=== PATIENT | male | born 1945 | race Caucasian/White ===

== ENCOUNTER 2021-01-25 17:07 | Observation (INO) | payer MEDICARE, OTHER ==
--- NOTE | 2021-01-25 17:20 | ED Physician Documentation ---
History of Present Illness - Stated complaint Stated Complaint: SENT BY FOR HIGH POTASSIUM - Chief complaint Chief Complaint: General - History obtained from History obtained from: Patient - Additonal information Additional information: 76-year-old gentleman with type 2 diabetes and hypertension but no known kidney problems had outpatient labs done today to follow-up on a finger infection and was notified to come to the emergency department for hyperkalemia. He does not know what the level was. Review of Systems Ten Systems: 10 systems reviewed and negative Constitutional: reports: Reviewed and negative Cardiac: reports: Reviewed and negative Respiratory: reports: Reviewed and negative PD PAST MEDICAL HISTORY - Present Medications Home Medications: Ambulatory Orders Medication Instructions Recorded Confirmed Insulin Glargine [Lantus Solostar] 10 units SQ HS 01/25/21 01/25/21 Lisinopril [Prinivil] 5 mg PO DAILY 01/25/21 01/25/21 Sulfamethoxazole/Trimethoprim 1 tab PO BID 01/25/21 01/25/21 [Bactrim 400-80 mg Tablet] - Allergies Allergies/Adverse Reactions: Allergies Allergy/AdvReac Type Severity Reaction Status Date / Time adhesive tape AdvReac Rash Verified 01/25/21 18:25 PD ED PE NORMAL - Vitals Vital signs reviewed: Yes - General General: Alert and oriented X 3, No acute distress - HEENT HEENT: PERRL, EOMI - Neck Neck: Supple, no meningeal sign, No bony TTP - Cardiac Cardiac: RRR, No murmur - Respiratory Respiratory: No respiratory distress, Clear bilaterally - Abdomen Abdomen: Soft, Non tender - Back Back: No CVA TTP, No spinal TTP - Derm Derm: Normal color, Warm and dry, No rash - Extremities Extremities: No edema, No calf tenderness / cord - Neuro Neuro: Alert and oriented X 3, Normal speech - Psych Psych: Normal mood, Normal affect Results - Vitals Vitals: Vital Signs - 24 hr 01/25/21 01/25/21 17:17 18:11 Temperature 36.5 C Heart Rate 90 80 Respiratory 16 16 Rate Blood Pressure 131/78 H 135/74 H O2 Saturation 100 96 Oxygen O2 Source Room air - EKG (time done) 1734 Rate: Rate (enter#) (88) Rhythm: NSR [place]: Normal Intervals: Normal [place] QRS: Normal Ischemia: Normal ST segments, Other (No EKG evidence of hyperkalemia.) - Labs Labs: Laboratory Tests 01/25/21 01/25/21 01/25/21 17:41 17:41 17:41 WBC 5.5 RBC 4.94 Hgb 15.1 Hct 43.8 MCV 88.7 MCH 30.6 MCHC 34.5 RDW 11.9 L Plt Count 149 MPV 11.2 Neut # (Auto) 3.8 Lymph # (Auto) 1.1 L [place] # (Auto) 0.5 Eos # (Auto) 0.1 Baso # (Auto) 0.0 Absolute Nucleated RBC 0.00 Nucleated RBC % 0.0 Sodium 133 L Potassium 6.1 H* Chloride 98 L Carbon Dioxide 25 Anion Gap 10.0 BUN 36 H Creatinine 1.9 H Estimated GFR (MDRD) 35 L Glucose 326 H Calcium 10.0 Phosphorus 4.4 Magnesium 2.3 PD MEDICAL DECISION MAKING - ED course ED course: 75-year-old gentleman with history of type 2 diabetes, currently uncontrolled because he is out of his Lantus. He is been on Bactrim for about a week for a finger infection and had outpatient labs done today concerning for hyperkalemia. His EKG was without evidence of hyperkalemia so the differential diagnosis includes both hyperkalemia and "pseudohyperkalemia." Repeat labs here did demonstrate significant but not alarming elevation in his potassium with depressed renal function of unclear acuity. Also hyperglycemia. An IV was started and placed on twice maintenance saline and given a small dose of IV insulin. Dr. Fried agrees to observation for IV fluid rehydration and repeat labs. He will need to change the antibiotic to something else less nephrotoxic. Departure - Departure Disposition: ED Place in Observation Clinical Impression: Hyperkalemia, Renal insufficiency Uncontrolled type 2 diabetes mellitus Qualifiers: Glycemic state: with hyperglycemia Qualified Code(s): E11.65 - Type 2 diabetes mellitus with hyperglycemia Condition: Fair
[2021-01-25 18:11] LABS: CREATININE 1.9 mg/dL (0.6-1.2)
[2021-01-25 18:13] LABS: POTASSIUM 6.1 mmol/L (3.5-5.0)
[2021-01-25] MEDS ORDERED: SODIUM CHLORIDE 0.9% 1,000 ML IV STA (18:16)
[2021-01-25] MEDS ORDERED: SODIUM CHLORIDE FLUSH 0.9% 10 ML SYRINGE IVP PRN (18:19)
[2021-01-25] MEDS ORDERED: INSULIN REGULAR HUMAN 100 UNIT/1 ML 10 ML MDV IVP STA (18:19)
[2021-01-25] MEDS ORDERED: ONDANSETRON ODT 4 MG TABLET TL PRN (18:19)
[2021-01-25] MEDS ORDERED: ACETAMINOPHEN 325 MG TABLET PO PRN (18:19)
[2021-01-25 18:32] LABS: BASOPHILS % (AUTO) 0.7 %; EOSINOPHILS # (AUTO) 0.1 10^3/uL (0.0-0.7); EOSINOPHILS % (AUTO) 1.3 %; HCT - HEMATOCRIT 43.8 % (42.0-52.0); HGB - HEMOGLOBIN 15.1 g/dL (14.0-18.0); LYMPHOCYTES # (AUTO) 1.1 10^3/uL (1.5-3.5); LYMPHOCYTES % (AUTO) 19.1 %; MEAN CORPUSCULAR HEMOGLOBIN 30.6 pg (27.0-31.0); MEAN CORPUSCULAR HGB CONC 34.5 g/dL (32.0-36.0); MEAN CORPUSCULAR VOLUME 88.7 fL (80.0-94.0); MEAN PLATELET VOLUME 11.2 fL (7.4-11.4); MONOCYTES # (AUTO) 0.5 10^3/uL (0.0-1.0); MONOCYTES % (AUTO) 9.8 %; NEUTROPHILS # (AUTO) 3.8 10^3/uL (1.5-6.6); NEUTROPHILS % (AUTO) 68.7 %; PLT - PLATELET COUNT 149 10^3/uL (130-450); RED BLOOD COUNT 4.94 10^6/uL (4.70-6.10); RED CELL DISTRIBUTION WIDTH 11.9 % (12.0-15.0); WHITE BLOOD COUNT 5.5 x10^3/uL (4.8-10.8)
[2021-01-25 18:41] LABS: MAGNESIUM 2.3 mg/dL (1.7-2.8); PHOSPHORUS 4.4 mg/dL (2.5-4.6)
[2021-01-25] MEDS: SODIUM CHLORIDE 0.9% 1,000 ML IV SCH (19:35)
[2021-01-25 20:44] LABS: CORONAVIRUS 229E-RESP PCR NOT DETECTED; CORONAVIRUS HKU1-RESP PCR NOT DETECTED; CORONAVIRUS NL63-RESP PCR NOT DETECTED; CORONAVIRUS OC43-RESP PCR NOT DETECTED; HUMAN METAPNEUMOVIRUS NOT DETECTED; INFLUENZA A- RESP PCR PANEL NOT DETECTED; INFLUENZA B - RESP PCR PANEL NOT DETECTED; PARAINFLUENZA VIRUS 1 NOT DETECTED; PARAINFLUENZA VIRUS 2 NOT DETECTED; PARAINFLUENZA VIRUS 3 NOT DETECTED; PARAINFLUENZA VIRUS 4 NOT DETECTED; RHINOVIRUS/ENTEROVIRUS NOT DETECTED; SARS-CoV-2 -RESP PCR PANEL NOT DETECTED
[2021-01-25 20:45] LABS: B. PARAPERTUSSIS- RESP PCR PAN NOT DETECTED; B. PERTUSSIS- RESP PCR PANEL NOT DETECTED; C. PNEUMONIAE- RESP PCR PANEL NOT DETECTED; M. PNEUMONIAE- RESP PCR PANEL NOT DETECTED; RSV- RESP PCR PANEL NOT DETECTED
[2021-01-25] MEDS ORDERED: levoFLOXacin 750 MG/150 ML 750 MG/150 ML BAG IV SCH (21:00)
[2021-01-25] MEDS ORDERED: INSULIN GLARGINE 300 UNIT/3 ML PEN SUBQ SCH (21:00)
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
[2021-01-25 21:34] LABS: CALCIUM 9.4 mg/dL (8.5-10.3); CREATININE 1.8 mg/dL (0.6-1.2)
[2021-01-25] MEDS ORDERED: TEMAZEPAM 15 MG CAPSULE PO PRN (23:47)
[2021-01-26] MEDS: SODIUM CHLORIDE FLUSH 0.9% 10 ML SYRINGE IVP SCH ×2 (00:39→10:50)
[2021-01-26] MEDS: SODIUM CHLORIDE 0.9% 1,000 ML IV SCH (03:48)
[2021-01-26 05:11] LABS: BUN - BLOOD UREA NITROGEN 37 mg/dL (6-20); CALCIUM 8.9 mg/dL (8.5-10.3); CARBON DIOXIDE - CO2 23 mmol/L (21-32); CHLORIDE 103 mmol/L (101-111); CREATININE 1.5 mg/dL (0.6-1.2); GFR - MDRD 46 (>89); GLUCOSE 208 mg/dL (70-100); POTASSIUM 5.4 mmol/L (3.5-5.0); SODIUM 133 mmol/L (135-145)
[2021-01-26 05:24] LABS: CRP - C-REACTIVE PROTEIN < 1.0 mg/dL (0-1.0)
[2021-01-26] MEDS ORDERED: DEXTROSE 50% ABBOJECT 25 GM/50 ML SYRINGE IVP ONE (07:01)
[2021-01-26] MEDS ORDERED: INSULIN REGULAR HUMAN 100 UNIT/1 ML 10 ML MDV IVP STA (07:01)
[2021-01-26] MEDS ORDERED: SODIUM POLYSTYRENE SULFONATE 15 GM/60 ML BOTTLE PO ONE (07:41)
--- NOTE | 2021-01-26 07:42 | Discharge Plan ---
Discharge Plan Problem Reviewed?: Yes Disposition: Home, Self Care Condition: Stable Prescriptions: Insulin Glargine [Lantus Solostar] 10 units SQ HS #3 each levoFLOXacin [Levaquin] 750 mg PO UD #21 tablet amLODIPine [Norvasc] 5 mg PO DAILY #30 tablet Diet: Diabetic Activity Restrictions: Activity as Tolerated Health Concerns: You were admitted to the hospital overnight because of high potassium. This is likely due to the antibiotics you were on as well as being a little dehydrated which affected your kidneys. Your potassium numbers are improved this morning. You will need to stop the antibiotic you are on and begin taking a new one called Levaquin. It is also recommended that you stop taking lisinopril as this can also cause high potassium. You will need to follow-up with Dr. Fontenot and will need repeat labs checked to make sure your potassium is stable. Plan of Treatment: Please stop taking the Bactrim and lisinopril. Both of these can cause your potassium to be elevated. Please begin taking Levaquin once every two days. This is an antibiotic to treat your finger infection. Please begin taking amlodipine 5 mg once a day. This will help treat your high blood pressure. Please follow up with the hand surgeon this afternoon, Dr. Santos Hairston as scheduled. Please also follow-up with Dr. Pack for repeat labs tomorrow. It is important to take your insulin as prescribed as your blood glucose has been elevated and poorly controlled diabetes can affect your kidneys. Care Goals: The goal is to treat the high potassium and to evaluate your finger infection further. Assessment: Patient expressed understanding of the treatment plan. Additional Instructions or Follow Up instructions: You have a follow-up appointment this afternoon with Dr. Santos Hairston who is a hand surgeon at [facility] in [facility]. The phone number is [phone]. The appointment is at 2:30 PM at the [facility]. The address is [address] [place] [address] [place] [address]. I also spoke with Dr. Fontenot and she has ordered blood work to make sure that your potassium and kidney function are both stable. This will be done the following Friday which is 29 of January. [place] to have this blood work done. No Smoking: If you smoke, Please STOP! Call for help. Follow-up with: ANASTASIIA FONTENOT MD [Primary Care Provider] -
[2021-01-26] MEDS ORDERED: INSULIN ASPART 300 UNIT/3 ML PEN SUBQ SCH (08:00)
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
[2021-01-26 09:18] LABS: CALCIUM 9.3 mg/dL (8.5-10.3); CREATININE 1.4 mg/dL (0.6-1.2); POTASSIUM 4.8 mmol/L (3.5-5.0)
--- NOTE | 2021-01-26 09:23 | XRAY Report ---
PROCEDURE: Finger(s) RT INDICATIONS: infected right finger TECHNIQUE: AP hand, 3 views of the sec finger(s) acquired. COMPARISON: None FINDINGS: Bones: No fractures or dislocations. No suspicious bony lesions. Soft tissues: No suspicious soft tissue calcifications. Mild soft tissue edema is present within th e second digit. IMPRESSION: Second digit soft tissue edema without visualized underlying osseous abnormality. Reviewed by: Eliza Garcia MD on 01/26/2021 9:21 AM PDT Approved by: Eliza Garcia MD on 01/26/2021 9:21 AM PDT Station ID: [id number]
[2021-01-26 11:16] VITALS: BP 136/80
== END 2021-01-26 12:00 | disposition home or self-care (01) ==
LOC: EDBD → ED 17:07 → MERGE 18:19 → MS2 18:19
PROVIDERS: ADMIT Internal Medicine; ATTEND Internal Medicine
DX: E87.5 Hyperkalemia (principal); N17.9 Acute kidney failure, unspecified; E11.65 Type 2 diabetes mellitus with hyperglycemia; I10 Essential (primary) hypertension; L03.011 Cellulitis of right finger; T38.3X6A Underdosing of insulin and oral hypoglycemic [antidiabetic] drugs, initial encounter; E86.0 Dehydration; F09 Unspecified mental disorder due to known physiological condition; Z79.4 Long term (current) use of insulin; E78.5 Hyperlipidemia, unspecified; E11.649 Type 2 diabetes mellitus with hypoglycemia without coma; T36.8X5A Adverse effect of other systemic antibiotics, initial encounter; T46.4X5A Adverse effect of angiotensin-converting-enzyme inhibitors, initial encounter; R41.3 Other amnesia; I49.9 Cardiac arrhythmia, unspecified; R19.7 Diarrhea, unspecified; Z20.822 Contact with and (suspected) exposure to COVID-19
CPT/HCPCS: 36415; 73140; 80048; 83735; 84100; 85025; 86140; 87631; 93005; 96365; 96375; 99283; 99285; A9270; G0378; J1815; 0202U

== ENCOUNTER 2021-12-05 17:48 | Emergency (ER) | payer MEDICARE, OTHER ==
[2021-12-05] MEDS ORDERED: SODIUM CHLORIDE 0.9% 1,000 ML IV STA ×2 (19:24→22:11)
[2021-12-05 19:31] LABS: EOSINOPHILS # (AUTO) 0.2 10^3/uL (0.0-0.7); EOSINOPHILS % (AUTO) 3.9 %; HGB - HEMOGLOBIN 12.8 g/dL (14.0-18.0); LYMPHOCYTES # (AUTO) 0.9 10^3/uL (1.5-3.5); LYMPHOCYTES % (AUTO) 22.5 %; MEAN CORPUSCULAR HEMOGLOBIN 29.6 pg (27.0-31.0); MEAN CORPUSCULAR HGB CONC 32.8 g/dL (32.0-36.0); MEAN CORPUSCULAR VOLUME 90.1 fL (80.0-94.0); MONOCYTES # (AUTO) 0.3 10^3/uL (0.0-1.0); MONOCYTES % (AUTO) 7.9 %; NEUTROPHILS # (AUTO) 2.5 10^3/uL (1.5-6.6); NEUTROPHILS % (AUTO) 64.2 %; PLT - PLATELET COUNT 89 10^3/uL (130-450); RED BLOOD COUNT 4.33 10^6/uL (4.70-6.10); WHITE BLOOD COUNT 3.8 x10^3/uL (4.8-10.8)
[2021-12-05 19:32] LABS: KETONES, SERUM (ACETEST) NEGATIVE (NEGATIVE)
[2021-12-05 19:38] LABS: VBG BASE EXCESS -4.6 mmol/L (-2 - +2); VBG HCO3 22.5 mmol/L (23-28); VBG OXYGEN SATURATION 54.8 % (60-80); VBG PCO2 49.7 mmHg (41-51); VBG PH 7.274 (7.31-7.41); VBG PO2 29.7 mmHg (25-47)
[2021-12-05 19:40] LABS: ALBUMIN 3.5 g/dL (3.2-5.5); ALKALINE PHOSPHATASE 171 IU/L (42-121); ALT ALANINE AMINOTRANSFERASE 65 IU/L (10-60); AST ASPARTATE AMINOTRANSFERASE 48 IU/L (10-42); BILIRUBIN,TOTAL 0.4 mg/dL (0.2-1.0); BUN - BLOOD UREA NITROGEN 46 mg/dL (6-20); CALCIUM 9.2 mg/dL (8.5-10.3); CARBON DIOXIDE - CO2 23 mmol/L (21-32); CHLORIDE 107 mmol/L (101-111); CREATININE 1.1 mg/dL (0.6-1.2); GFR - MDRD 65 (>89); GLUCOSE 166 mg/dL (70-100); LIPASE 19 U/L (22-51); POTASSIUM 5.8 mmol/L (3.5-5.0); SODIUM 136 mmol/L (135-145); TOTAL PROTEIN 6.9 g/dL (6.7-8.2)
[2021-12-05] MEDS ORDERED: INSULIN REGULAR HUMAN 100 UNIT/1 ML 10 ML MDV SUBQ STA (20:13)
[2021-12-05] MEDS ORDERED: DEXTROSE 50% ABBOJECT 25 GM/50 ML SYRINGE IVP STA (20:13)
[2021-12-05] MEDS ORDERED: FUROSEMIDE 20 MG/2 ML VIAL IVP STA (22:14)
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
[2021-12-05 23:30] LABS: BILIRUBIN,URINE NEGATIVE (NEGATIVE); GLUCOSE, URINE (UA) 250 mg/dL (NEGATIVE); KETONES,URINE (UA) NEGATIVE (NEGATIVE); LEUKOCYTE ESTERASE, URINE NEGATIVE (NEGATIVE); NITRITE,URINE NEGATIVE (NEGATIVE); OCCULT BLOOD,URINE NEGATIVE (NEGATIVE); PH,URINE 5.5 PH (5.0-7.5); PROTEIN,URINE NEGATIVE (NEGATIVE); UROBILINOGEN,URINE 0.2 (NORMAL) E.U./dL (NORMAL)
[2021-12-05 23:31] LABS: CLARITY,URINE CLEAR (CLEAR)
[2021-12-06 00:36] LABS: POTASSIUM 5.2 mmol/L (3.5-5.0)
[2021-12-06 02:02] VITALS: BP 173/77
--- NOTE | 2021-12-06 09:03 | ED Physician Documentation ---
ED Addendum - Addendum Addendum: 12/06/21 09:02 Received sign out from Dr. Mcguire at end of his shift. Patient had presented for lightheadedness which apparently improved during ED stay with IV fluids. He was found to be hyperkalemic with potassium level increased on a second draw even after IV fluids, insulin and glucose. He is then given IV lasix and more IV fluids with sign out to recheck potassium as well as check on urinalysis result. The urinalysis is unremarkable (negative except for 250 glucose). Repeat p otassium is much improved at 5.2. Patient tells me he feels well and is eager to be discharged. I discussed with the patient and his son (who is in ED at bedside) that the potassium level remains mildly elevated but discharge home is appropriate given the mild elevation. I encouraged them to contact the primary care provider to not only arrange for next available appointment, but also to tell them about the elevated potassium levels. I note that patient is currently taking lisinopril and advised them that this is a potential cause of high potassium and advised him to stop taking this medication. Patient's son indicates to me that patient had been admitted for high potassium last year. In reviewing his records, I note that he was discharged 01/26/21 after inpatient stay for hyperkalemia and the discharge instructions include "please stop taking the bactrim and lisinopril. both of these can cause your potassium to be elevated". The son says patient was recently restarted on the lisinopril. I emphasized that he should stop the lisinopril. I provided a prescription for amlodipine (transmitted to [facility] pharmacy). I also instructed them to let the primary care provider's office know about this change in antihypertensive medication.
== END 2021-12-06 02:11 | disposition home or self-care (01) ==
LOC: ED 17:48
DX: E87.5 Hyperkalemia (principal); E86.0 Dehydration; E11.9 Type 2 diabetes mellitus without complications; Z79.4 Long term (current) use of insulin; I10 Essential (primary) hypertension
CPT/HCPCS: 36415; 80048; 80053; 81003; 82009; 82803; 83690; 84132; 84484; 85025; 93005; 96361; 96374; 96375; 99283; 99284; J1815; 81001; 87086